=== PATIENT | male | born 1995 | race Caucasian/White ===

== ENCOUNTER 2020-08-19 23:10 | Emergency (ER) | payer BC ==
[~2020-08-19] VITALS: Ht 182.9 cm; Wt 59.0 kg
[2020-08-19 23:15] VITALS: BP 122/68
--- NOTE | 2020-08-19 23:15 | NUR ---
ED Nurse Note: pt BIBA [facility] 29 from [place] complex, pt c/o shortness of breathe getting worse for the past 1 hour. Pt stated he tested positive for COVID 1 week ago. Pt admits to drinking alchohol and smoking in the past 1 hour. Pt is AAOx4, breathing even and unlabored on RA 100%, other vitals stable as documented.
--- NOTE | 2020-08-19 23:30 | NUR ---
ED Nurse Note: RT at bedside drawing ABGs
--- NOTE | 2020-08-19 23:45 | NUR ---
ED Nurse Note: blood and COVID swab sent to lab
[2020-08-19 23:59] LABS: EOSINOPHILS % (AUTO) 1.2 % (0.0-3.0); HEMATOCRIT 43.1 % (42.0-52.0); HEMOGLOBIN 15.1 G/DL (14.2-18.0); LYMPHOCYTES % (AUTO) 20.8 % (20.0-45.0); MEAN CORPUSCULAR VOLUME 88 FL (80-99); MONOCYTES % (AUTO) 7.4 % (1.0-10.0); NEUTROPHILS % (AUTO) 69.5 % (45.0-75.0); PLATELET COUNT 277 K/UL (150-450); RED BLOOD COUNT 4.89 M/UL (4.70-6.10); RED CELL DISTRIBUTION WIDTH 11.6 % (11.6-14.8); WHITE BLOOD COUNT 8.9 K/UL (4.8-10.8)
--- NOTE | 2020-08-20 00:08 | NUR ---
ED Nurse Note: urine sent to lab
--- NOTE | 2020-08-20 00:21 | NUR ---
ED Nurse Note: information technology advisor at bedside performing CXR
[2020-08-20 00:26] LABS: ALANINE AMINOTRANSFERASE 22 U/L (12-78); ALBUMIN 3.7 G/DL (3.4-5.0); ALBUMIN/GLOBULIN RATIO 1.3 (1.0-2.7); ALKALINE PHOSPHATASE 59 U/L (46-116); ANION GAP 13 mmol/L (5-15); ASPARTATE AMINO TRANSFERASE 20 U/L (15-37); BILIRUBIN,TOTAL 0.7 MG/DL (0.2-1.0); BLOOD UREA NITROGEN 8 mg/dL (7-18); CALCIUM 8.7 MG/DL (8.5-10.1); CARBON DIOXIDE 25 MMOL/L (21-32); CHLORIDE 103 MMOL/L (98-107); CKMB 0.9 NG/ML (0.0-3.6); CREATINE KINASE 76 U/L (26-308); CREATININE 0.8 MG/DL (0.55-1.30); POTASSIUM 2.8 MMOL/L (3.5-5.1); SODIUM 141 MMOL/L (136-145)
--- NOTE | 2020-08-20 00:32 | NUR ---
ED Nurse Note: EDMD aware potassium 2.8
--- NOTE | 2020-08-20 00:48 | NUR ---
ELOPEMENT: pt left at 0048, pt stated "No one is helping me, Im just going to leave." Pt refused to stay and speak with EDMD, pt refused to sign AMA paperwork. Pt ripped out IV and ekg monitor tech wires.
--- NOTE | 2020-08-20 01:52 | Emergency Room Report ---
History of Present Illness General Chief Complaint: Dyspnea/Respdistress Source: Patient Present Illness HPI 24-year-old male with shortness of breath. Patient says that he has tested positive for COVID-19 2 times over the past 3 weeks. Patient says that he initially tested positive approximately 3 weeks ago and since then he has had generalized chest pain and shortness of breath and palpitations. Patient says that he has been attempting to quarantine at home but he has been to the hospital 3 times due to his symptoms. Says "they never do anything for me and they sent me home." Patient says that he regularly takes "downers" and is an everyday smoker. Denies other drugs and alcohol use. Pain is diffuse, sharp in nature, worse on deep breath. Has not been taking any medications at home. Allergies: Coded Allergies: SULFA (SULFONAMIDE ANTIBIOTICS) (Verified Allergy, Unknown, 08/19/20) COVID-19 Screening Contact w/high risk pt: Yes Experienced COVID-19 symptoms?: Yes COVID-19 Testing performed [employer]: Yes - 08/08/20 COVID-19 Screening: Positive COVID-19 COVID-19 Testing Source: unsure Nursing Documentation-[facility] Past Medical History: No History, Except For Review of Systems All Other Systems: negative except mentioned in HPI Physical Exam Vital Signs Date Time Temp Pulse Resp B/P (MAP) Pulse Ox O2 Delivery O2 Flow Rate FiO2 08/19/20 23:07 97.9 96 14 131/70 (90) 100 Nasal Cannula 2.0 Sp02 EP Interpretation: reviewed, normal General Appearance: no apparent distress, alert, GCS 15, non-toxic Head: normocephalic, atraumatic Eyes: bilateral eye normal inspection, bilateral eye PERRL ENT: hearing grossly normal, normal pharynx, no angioedema, normal voice Neck: full range of motion, supple/symm/no masses Respiratory: chest non-tender, lungs clear, normal breath sounds, speaking full sentences Cardiovascular #1: regular rate, rhythm, no edema Cardiovascular #2: 2+ carotid (R), 2+ carotid (L), 2+ radial (R), 2+ radial (L), 2+ dorsalis pedis (R), 2+ dorsalis pedis (L) Gastrointestinal: normal bowel sounds, non tender, soft, non-distended, no guarding, no rebound Rectal: deferred Genitourinary: normal inspection, no CVA tenderness Musculoskeletal: back normal, normal range of motion, calf tenderness, gait/station normal, non-tender Neurologic: alert, motor strength/tone normal, oriented x3, sensory intact, responsive, speech normal Psychiatric: judgement/insight normal, memory normal, mood/affect normal, no suicidal/homicidal ideation Lymphatic: no adenopathy Medical Decision Making ER Course Laboratory Tests Test 08/19/20 23:15 08/19/20 23:55 White Blood Count 8.9 K/UL (4.8-10.8) Red Blood Count 4.89 M/UL (4.70-6.10) Hemoglobin 15.1 G/DL (14.2-18.0) Hematocrit 43.1 % (42.0-52.0) Mean Corpuscular Volume 88 FL (80-99) Mean Corpuscular Hemoglobin 30.9 PG (27.0-31.0) Mean Corpuscular Hemoglobin Concent 35.0 G/DL (32.0-36.0) Red Cell Distribution Width 11.6 % (11.6-14.8) Platelet Count 277 K/UL (150-450) Mean Platelet Volume 6.5 FL (6.5-10.1) Neutrophils (%) (Auto) 69.5 % (45.0-75.0) Lymphocytes (%) (Auto) 20.8 % (20.0-45.0) Monocytes (%) (Auto) 7.4 % (1.0-10.0) Eosinophils (%) (Auto) 1.2 % (0.0-3.0) Basophils (%) (Auto) 1.0 % (0.0-2.0) Sodium Level 141 MMOL/L (136-145) Potassium Level 2.8 MMOL/L (3.5-5.1) L Chloride Level 103 MMOL/L (98-107) Carbon Dioxide Level 25 MMOL/L (21-32) Anion Gap 13 mmol/L (5-15) Blood Urea Nitrogen 8 mg/dL (7-18) Creatinine 0.8 MG/DL (0.55-1.30) Estimated Glomerular Filtration Rate > 60 mL/min (>60) Glucose Level 103 MG/DL (74-106) Calcium Level 8.7 MG/DL (8.5-10.1) Total Bilirubin 0.7 MG/DL (0.2-1.0) Aspartate Amino Transferase (AST) 20 U/L (15-37) Alanine Aminotransferase (ALT) 22 U/L (12-78) Alkaline Phosphatase 59 U/L (46-116) Total Creatine Kinase 76 U/L (26-308) Creatine Kinase MB 0.9 NG/ML (0.0-3.6) Creatine Kinase MB Relative Index 1.1 Total Protein 6.6 G/DL (6.4-8.2) Albumin 3.7 G/DL (3.4-5.0) Globulin 2.9 g/dL Albumin/Globulin Ratio 1.3 (1.0-2.7) POC Whole Blood Glucose 85 MG/DL (74-106) Microbiology Date/Time Source Procedure Growth Status 08/19/20 23:30 Nasopharynx SARS-CoV-2 RdRp Gene Assay - Final Complete 24-year-old male with history of positive COVID tests 2 times over the past 3 weeks here with generalized chest discomfort and shortness of breath. Patient w as hemodynamically stable and had normal vital signs including a normal oxygen saturation in the emergency department. He never required oxygen supplementation. Potassium was notably low at 2.8. Before I was able to tell the patient about his abnormal potassium and need for supplementation, the patient had ripped his IV out and eloped from the emergency department. Last Vital Signs Date Time Temp Pulse Resp B/P (MAP) Pulse Ox O2 Delivery O2 Flow Rate FiO2 08/19/20 23:15 98.1 65 18 122/68 100 Room Air 08/19/20 23:07 2.0 Referrals: NOT CHOSEN GEOVANY/,REFERRING (PCP) Bal Tamayo M.D. Aug 20, 2020 01:52
--- NOTE | 2020-08-20 15:41 | Cardiology Report ---
APPROVED REPORT EKG Measurement Heart [id number] <Conclusion> Normal sinus rhythm with sinus arrhythmia Normal ECG
--- NOTE | 2020-08-20 20:38 | Diagnostic Imaging Report ---
Indication: Shortness of breath Technique: One view of the chest Comparison: none Findings: Lungs and pleural spaces are clear. Heart size is normal. Impression: No acute process
== END 2020-08-20 00:48 | disposition left against medical advice (07) ==
LOC: EDBD 23:10 → EMR 23:29
DX: U07.1 COVID-19 (principal); Z88.2 Allergy status to sulfonamides
CPT/HCPCS: 36415; 71045; 80053; 82550; 82553; 82962; 85025; 87040; 93005; 96360; 99284; J7030; U0002; J8499